=== PATIENT | male | born 1975 | race Caucasian/White ===

== ENCOUNTER 2017-03-01 11:13 | Emergency (ER) | payer SELFPAY ==
[2017-03-01 11:21] VITALS: BP 156/75; PULSE 78; TEMP 98.1; BMI 44.9
--- NOTE | 2017-03-01 13:26 | PDOC ---
History of Present Illness - General Chief Complaint: Pain Stated Complaint: RT ANKLE PAIN Time Seen by Provider: 03/01/17 12:14 History Source: Patient Exam Limitations: No Limitations - History of Present Illness Initial Comments: 03/01/17 13:23 My Chief Complaint: Left medial knee pain and b/l heel pain History of present illness: Patient is a 41-year-old male with no significant medical history here today complaining of bilateral heel pain and left medial knee pain 3 weeks. Patient reports that his left knee gives out at times and seble. Patient denies any injuries. Patient reports that pain and left knee is currently an 8 out of 10. heel pain is currently a 5 out of 10. Patient has not taken anything for pain today. Occurred: reports: other (3 WEEKS) Severity: Yes: moderate Lower Extremity Pain Location: left: knee (MEDIAL ), bilateral: foot (HEELS) Method of Injury: Yes: unknown Modifying Factors: improves with: immobilization Lower Ext. Injury Location - Specific Injury Location Knees: left pain (MEDIAL ) Foot: bilateral foot pain (HEELS ) Extremity Pain Location - Extremity Pain Location Extremity Pain Locations: left: knee (MEDIAL ), bilateral: foot (HEELS ) Past History - Past Medical History Allergies/Adverse Reactions: Allergies Allergy/AdvReac Type Severity Reaction Status Date / Time No Known Allergies Allergy Verified 03/01/17 11:17 Home Medications: Ambulatory Orders NK [No Known Home Medication] 03/01/17 - Surgical History Abdominal Surgery: Yes (exploratory sx from [facility]) - Immunization History Immunization Up to Date: Yes - Psycho/Social/Smoking Cessation Hx Anxiety: No Suicidal Ideation: No Smoking Status: No Smoking History: Never smoked Have you smoked in the past 12 months: No Number of Cigarettes Smoked Daily: 0 Cigars Per Day: 0 Information on smoking cessation initiated: No Hx Alcohol Use: No Drug/Substance Use Hx: No Substance Use Type: None Review of Systems - Review of Systems Able to Perform ROS?: Yes Constitutional: No: Symptoms Reported HEENTM: No: Symptoms Reported Respiratory: No: Symptoms reported Cardiac (ROS): No: Symptoms Reported ABD/GI: No: Symptoms Reported : No: Symptoms Reported Musculoskeletal: Yes: Joint Pain (LEFT medial knee and b/l heel pain x 3 weeks , left knee gives out on him, denies any injuries). No: Joint Swelling Integumentary: No: Symptoms Reported Neurological: No: Symptoms reported *Physical Exam - Vital Signs Last Vital Signs Temp Pulse Resp BP Pulse Ox 98.1 F 78 18 156/75 100 03/01/17 11:18 03/01/17 11:18 03/01/17 11:18 03/01/17 11:18 03/01/17 11:18 - Physical Exam General Appearance: Yes: Appropriately Dressed Vascular Pulses: Dorsalis-Pedis (R): 4+, Doralis-Pedis (L): 4+ Extremity: positive: Normal Capillary Refill, Normal Inspection, Normal Range of Motion, Tender (left medial knee, b/l heels ), Other (negative anterior/ posterior drawer). negative: Swelling Integumentary: positive: Normal Color Neurologic: positive: Alert, Normal Response, Responsive Procedures - Consent Consent obtained: From Patient - Splinting Pre-Made Type: knee immobilizer (left) Post-Proc Neuro Vasc Exam: normal ED Treatment Course - RADIOLOGY Radiology Studies Ordered: Category Date Time Status FOOT-LEFT [RAD] Stat Radiology 03/01/17 12:52 Ordered FOOT-RIGHT [RAD] Stat Radiology 03/01/17 12:52 Ordered KNEE 3 POS-LEFT [RAD] Stat Radiology 03/01/17 12:52 Ordered Medical Decision Making - Medical Decision Making 03/01/17 13:25 Patient is a 41-year-old male with no significant medical history here today complaining of bilateral heel pain and left medial knee pain 3 weeks. Patient reports that his left knee gives out at times and seble. Patient denies any injuries. Patient reports that pain and left knee is currently an 8 out of 10. heel pain is currently a 5 out of 10. Patient has not taken anything for pain today. left medial knee pain b/l heel pain PLAN: xray left knee minimal degenerative changes per Dr. Donovan xray b/l foot, no coty abnormality noted per Dr. Shepherd ibuprofen 600 mg po now left knee immobilizer cane ortho referral 03/01/17 13:35 03/02/17 08:15 03/02/17 08:16 *DC/Admit/Observation/Transfer Diagnosis at time of Disposition: Heel pain, bilateral Knee pain, left Qualifiers: Chronicity: acute Qualified Code(s): M25.562 - Pain in left knee - Discharge Dispostion Disposition: HOME Condition at time of disposition: Stable - Referrals Referrals: Per Lakhani MD [Staff Physician] - Fernando Ramirez MD [Staff Physician] - - Patient Instructions Additional Instructions: Keep Immobilizer on during the day take off at night and use Cane for ambulation Follow-up with orthopedist as soon as possible for further evaluation for left knee pain Follow-up with accounts payable administrator for further evaluation of heel pain as soon as possible take ibuprofen as needed as directed by bar catcher for pain Patient voiced understanding of discharge instructions and all questions were answered
[2017-03-01] MEDS ORDERED: IBUPROFEN 600 MG TABLET (FP) PO ONE ×2 (13:27→13:29)
== END 2017-03-01 13:39 | disposition home or self-care (01) ==
LOC: JERFT 11:13
PROC: 2W3RXYZ Immobilization of Left Lower Leg using Other Device (ICD-10-PCS; principal; 2017-03-01)
DX: M25.562 Pain in left knee (principal)
CPT/HCPCS: 73562-TC-LT; 73630-TC-LT; 73630-TC-RT; 99282-25

== ENCOUNTER 2019-04-11 15:21 | Emergency (ER) | payer SELFPAY ==
--- NOTE | 2019-04-11 15:29 | PDOC ---
Rapid Medical Evaluation Time Seen by Provider: 04/11/19 15:27 Medical Evaluation: Allergies Allergy/AdvReac Type Severity Reaction Status Date / Time No Known Allergies Allergy Verified 03/01/17 11:17 04/11/19 15:27 I have performed a brief in-person evaluation of this patient. The patient presents with a chief complaint of: hand laceration Pertinent physical exam findings:stable and in NAD, non-focal, no signs of tendon injury I have ordered the following: bacitracin last tetanus 4-5 years ago The patient will proceed to the ED for further evaluation. 04/11/19 15:29
[2019-04-11 15:31] VITALS: BP 129/82; PULSE 79; TEMP 98; BMI 37.5
[2019-04-11] MEDS ORDERED: DIPHTH,PERTUSS(ACELL),TET 0.5 ML DISP.SYRIN IM ONE (17:17)
--- NOTE | 2019-04-11 17:32 | PDOC ---
History of Present Illness - General Chief Complaint: Injury Stated Complaint: RT. HAND LACERTION Time Seen by Provider: 04/11/19 15:27 - History of Present Illness Initial Comments: 04/11/19 17:31 43-year-old male without comorbidities presents for evaluation of a laceration on his right hand. He is not current on tetanus. He states laceration occurred while opening a refrigerator with a sharp metal edge. Past History - Past Medical History Allergies/Adverse Reactions: Allergies Allergy/AdvReac Type Severity Reaction Status Date / Time No Known Allergies Allergy Verified 04/11/19 15:31 Home Medications: Ambulatory Orders NK [No Known Home Medication] 03/01/17 COPD: No - Surgical History Abdominal Surgery: Yes (exploratory sx from [facility]) - Immunization History Immunization Up to Date: Yes - Suicide/Smoking/Psychosocial Hx Smoking Status: No Smoking History: Never smoked Have you smoked in the past 12 months: No Number of Cigarettes Smoked Daily: 0 Cigars Per Day: 0 Information on smoking cessation initiated: No Hx Alcohol Use: No Drug/Substance Use Hx: No Substance Use Type: None Review of Systems - Review of Systems Musculoskeletal: Yes: See HPI *Physical Exam - Vital Signs Last Vital Signs Temp Pulse Resp BP Pulse Ox 98 F 79 17 129/82 98 04/11/19 15:29 04/11/19 15:29 04/11/19 15:29 04/11/19 15:29 04/11/19 15:29 - Physical Exam Comments: 04/11/19 17:31 There is a 2 cm laceration on the ulnar aspect of the hand on the skin overlying the fifth MCP J. There is no tendon exposed subcutaneous fat is exposed. The wound was explored to its base in a bloodless field without identification of foreign body. There are no gross sensorimotor deficits. Is neurovascularly intact. Medical Decision Making - Medical Decision Making 04/11/19 17:29 Aseptically the laceration was anesthetized with 6 mL of 1% lidocaine without epinephrine. Explored to its base in a bloodless field. There was no foreign body identified. The wound was copiously irrigated sterilely prepped and edges approximated with 3 interrupted simple sutures using 4-0 Prolene. A dry sterile dressing was placed. This was tolerated well. *DC/Admit/Observation/Transfer Diagnosis at time of Disposition: Laceration of hand - Discharge Dispostion Disposition: HOME Condition at time of disposition: Stable Decision to Admit order: No - Referrals Referrals: Jason Chahal MD [Staff Physician] - - Patient Instructions Printed Discharge Instructions: DI for Laceration Repair Additional Instructions: Keep the dressing on for the next 48 hours. After 48 hours you may remove the dressing and leave the area open to air. Wash the area with soap and water twice daily and leave it open to air. If you must work he must cover the laceration with a dry sterile dressing such as a large Band-Aid. Return to the emergency room if you have any problems such as redness drainage or swelling or increasing pain. These may be signs of infection. Your tetanus was updated today. Sutures out in 10 days you may follow-up with hand surgery in 1-2 days for wound check or return to the emergency room in 10 days for suture removal. You have the option of returning to the emergency room or following up with hand surgery. - Post Discharge Activity
== END 2019-04-11 18:23 | disposition home or self-care (01) ==
LOC: JERFT 15:21
PROC: 3E0234Z Introduction of Serum, Toxoid and Vaccine into Muscle, Percutaneous Approach (ICD-10-PCS; principal; 2019-04-11)
PROC: 0HQFXZZ Repair Right Hand Skin, External Approach (ICD-10-PCS; 2019-04-11)
DX: S61.411A Laceration without foreign body of right hand, initial encounter (principal); W26.8XXA Contact with other sharp object(s), not elsewhere classified, initial encounter; Y93.89 Activity, other specified; Y92.030 Kitchen in apartment as the place of occurrence of the external cause; Y99.8 Other external cause status
CPT/HCPCS: 90715; 99281-25

== ENCOUNTER 2021-01-16 16:59 | Emergency (ER) | payer SELFPAY ==
[2021-01-16 17:38] VITALS: BP 126/85; PULSE 84; TEMP 98.5; BMI 38.0
[2021-01-16] MEDS ORDERED: SODIUM CHLORIDE 1,000 ML IV STA (18:11)
[2021-01-16] MEDS ORDERED: FAMOTIDINE 20 MG/50 ML IVPB 20 MG/50 ML MG IVPB ONE ×2 (18:11→18:45)
[2021-01-16] MEDS ORDERED: ACETAMINOPHEN 1000 MG/100 ML VIAL (NON FORMULARY) IVPB ONE (18:11)
[2021-01-16] MEDS ORDERED: ACETAMINOPHEN INJECTION 100 ML IVPB ONE (18:45)
[2021-01-16 19:02] LABS: BASO % 1.2 % (0-2.0); EOS % 1.2 % (0-4.5); HEMATOCRIT 45.6 % (35.4-49); HEMOGLOBIN 15.8 GM/dL (11.7-16.9); MCH 30.9 pg (25.7-33.7); MCHC 34.5 g/dl (32.0-35.9); MEAN CELL VOLUME 89.4 fl (80-96); MEAN PLT VOLUME 8.5 fl (7.5-11.1); MONO % 6.5 % (3.8-10.2); NEUT % 63.1 % (42.8-82.8); PLATELET COUNT 316 K/MM3 (134-434); RDW 13.7 % (11.9-15.9); WHITE BLOOD COUNT 9.9 K/mm3 (4.0-10.0)
[2021-01-16 19:09] LABS: INR 1.01 (0.83-1.09); PROTHROMBIN TIME (PATIENT) 12.2 SEC (9.7-13.0)
[2021-01-16 19:21] LABS: URINE APPEARANCE CLEAR; URINE BILIRUBIN NEGATIVE (NEGATIVE); URINE COLOR YELLOW; URINE GLUCOSE (UA) NEGATIVE (NEGATIVE); URINE KETONE NEGATIVE (NEGATIVE); URINE LEUK ESTERASE NEGATIVE (NEGATIVE); URINE NITRITE NEGATIVE (NEGATIVE); URINE PROTEIN TRACE (NEGATIVE)
[2021-01-16 19:24] LABS: CHLORIDE 106 mmol/L (98-107); POTASSIUM 3.7 mmol/L (3.5-5.1); SODIUM 141 mmol/L (136-145)
[2021-01-16 19:27] LABS: ALBUMIN 4.3 g/dl (3.4-5.0); ANION GAP 7 MMOL/L (8-16); BLOOD UREA NITROGEN 9.4 mg/dL (7-18); CALCIUM 9.1 mg/dL (8.5-10.1); CO2 28 mmol/L (21-32); LIPASE 88 U/L (73-393)
[2021-01-16 19:28] LABS: GLUCOSE,RANDOM 88 mg/dL (74-106)
[2021-01-16 19:30] LABS: CREATININE 0.7 mg/dL (0.55-1.3); SGOT/AST 17 U/L (15-37)
[2021-01-16 19:32] LABS: BILIRUBIN,TOTAL 0.7 mg/dL (0.2-1)
[2021-01-16 19:33] LABS: ALK PHOS 102 U/L (45-117); SGPT/ALT 48 U/L (13-61)
== END 2021-01-16 21:00 | disposition home or self-care (01) ==
LOC: JER 16:59
PROC: 3E0333Z Introduction of Anti-inflammatory into Peripheral Vein, Percutaneous Approach (ICD-10-PCS; principal; 2021-01-16)
PROC: 3E033GC Introduction of Other Therapeutic Substance into Peripheral Vein, Percutaneous Approach (ICD-10-PCS; 2021-01-16)
PROC: 3E0337Z Introduction of Electrolytic and Water Balance Substance into Peripheral Vein, Percutaneous Approach (ICD-10-PCS; 2021-01-16)
DX: R10.9 Unspecified abdominal pain (principal)
CPT/HCPCS: 36415; 76705-TC; 80053; 81003; 82550; 83690; 84484; 85025; 85610; 87086; 93005; 93010; 99285-25; J0131